=== PATIENT | male | born 1955 | race Caucasian/White ===

== ENCOUNTER 2016-09-14 11:26 | Day surgery (SDC) ==
[2016-09-14] MEDS ORDERED: LR 1,000 ML ONE ×2 (11:55→14:58)
[2016-09-14] MEDS ORDERED: KEFZOL 2 GM/D5W 50 ML ONE (11:55)
[2016-09-14] MEDS ORDERED: PEPCID ONE (12:04)
[2016-09-14] MEDS ORDERED: REGLAN ONE (12:05)
[2016-09-14] MEDS ORDERED: APRESOLINE ONE (14:42)
[2016-09-14] MEDS ORDERED: DECADRON ONE (14:58)
[2016-09-14] MEDS ORDERED: ZOFRAN ONE (14:58)
--- NOTE | 2016-09-14 15:48 | OPERATIVE NOTE ---
PROCEDURE DATE: 09/14/2016 SURGEON: Annette. PREOPERATIVE DIAGNOSIS: Right distal ureteral stones consistent with steinstrasse. 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 PROCEDURE PERFORMED: Cystoscopic exam, right ureteroscopy, laser lithotripsy of a large stone fragment, basket extraction of fragments, place right double-J stent. ANESTHESIA: General via laryngeal mask. FINDINGS: Cystoscopic exam: Urethra - Greater than 21 [place], without stricture. Prostate - Mild hypertrophy of the lateral lobes, elevated bladder neck, length approximately 3.5 to 4 cm. Bladder - Normal ureteral orifices bilaterally. No papillary lesions or trabeculations. Rectal exam reveals a prostate of about 30-40 g, smooth, and symmetric. Right ureteroscopy revealed an approximate 8 mm stone in the distal ureter with multiple stone fragments lined up behind it. INDICATION FOR PROCEDURE: This 61-year-old male with long history of renal lithiasis had right kidney stones. He underwent right extracorporeal shockwave lithotripsy in June 2016. He developed right flank pain and evaluation revealed right distal stones consistent with steinstrasse. He wanted to try to pass these spontaneously but has decided to have the stone fragments removed. DESCRIPTION OF PROCEDURE: After informed consent was obtained, the patient having been receiving IV antibiotics, he was taken the main OR cystoscopy room and placed in a supine position. General anesthesia via laryngeal mask was achieved. He was then placed in the low lithotomy position and prepped and draped in the usual sterile fashion for cystoscopic exam. A 21-[place] cystoscope was passed through the patient's urethra, prostate, and bladder with findings noted above. A 0.035 zip wire was passed through the cystoscope, engaged in right ureteral orifice, advanced up into the kidney. The cystoscope was removed leaving the zip wire placed to act as a safety wire. A 7- [place] Storz semi rigid ureteroscope was advanced through the patient's urethra, prostate, and into the bladder. A 0.035 Sensor wire was passed through the ureteroscope and up into the right ureter. The ureteroscope was advanced over the Sensor wire and into the ureter. The ureteroscope was advanced and the distal stone fragment was visualized. The Sensor wire was removed. A 365 micron laser fiber was placed. The laser was set at 8 hertz and 8 colbert, and the stone was fragmented. A total of 860 joules was used. A 4 wire Nitinol basket was placed and multiple passes were made to remove all the stone fragments from the distal ureter. These were dropped into the bladder. The ureteroscope was advanced to the right UPJ area. No further stones or fragments were visualized. The ureteroscope was slowly removed and then removed from the body. The 21-[place] cystoscope was passed over the zip wire back into the bladder. A 6-[place], 26 cm double-J stent was passed over the zip wire and up into the kidney. The renal end was verified by fluoroscopic exam, bladder end directly visualized. The numerous amount of stone fragments were then irrigated from the bladder. Since he has had previous stones sent for analysis these were not sent since it is known he has calcium oxalate monohydrate and dihydrate stones. The bladder was drained. Cystoscope was removed. Stent removal string securely taped to the penile shaft. Rectal exam was performed. He tolerated the procedure well. The estimated blood loss was zero. He was taken to the recovery room in good condition.
--- NOTE | 2016-09-14 15:51 | Diag Imaging Result Document ---
PROCEDURE NAME: FLUROSCOPY CYSTO - 09/14/2016 RETROGRADE PYELOGRAM 10 IMAGES: FINDINGS: A stent was placed on the right by Dr. Bryant. The stones which were demonstrated on 07/06/2016 are not identifiable on the current study and no contrast was administered. IMPRESSION: Right ureteral stent placement.
[2016-09-14 15:56] VITALS: BP 157/89
[2016-09-14] MEDS ORDERED: DIPRIVAN 1% ONE (16:21)
== END 2016-09-14 16:00 | disposition home or self-care (01) ==
LOC: OR 11:26
PROVIDERS: ATTEND Urology
DX: N20.1 Calculus of ureter (principal); Z87.891 Personal history of nicotine dependence
CPT/HCPCS: 76000; J0360; J0690; J1100; J2405; J7120